=== PATIENT | male | born 1965 | race Caucasian/White ===

== ENCOUNTER → 2018-10-24 | Outpatient (CLI) | payer OTHER | LOC: CAT 10:53 | DX: Z13.6 Encounter for screening for cardiovascular disorders (principal); E78.00 Pure hypercholesterolemia, unspecified ==

== ENCOUNTER → 2018-10-29 | Outpatient (CLI) | payer BC, OTHER ==
[~2018-10-29] VITALS: Ht 182.9 cm; Wt 83.9 kg
--- NOTE | ~2018-10-29 | PATH ---
[facility] [address] [place] [address] PATHOLOGY RPT PROCEDURE Name: GLADYS CUEVAS TAN Room #: REG [facility] MJohnny.#: [id number] Admission: 10/29/18 Date of : 69 Discharge: Report #: [id number] Path Case #: [id number] [facility] Accession Number: [id number] . 01 Material submitted: . PART A: BX OF TRANSVERSE COLON POLYP X3 PART B: BX OF POLYP AT RECTUM X6 . 01 Clinical history: . Pre-OP DX: Screening Post-OP DX: Colon and rectal polyps . 02 Diagnosis: A. Polyps x 3, transverse colon polyp, endoscopic biopsy: - Three fragments showing lymphoid aggregates along with hyperplastic changes. - Negative for dysplasia. . B. Polyps x 6, at rectum, endoscopic biopsy: - Hyperplastic polyps as well as lymphoid aggregates. - Negative for dysplasia. (IUV:riaz; 10/30/2018) QMS/10/30/2018 . 02 Electronically signed: . Rachel Cruz MD, Pathologist NPI- [id number] . 01 Gross description: . A. Received in formalin labeled "Gladys Cuevas, BX of transverse colon polyp x3," are 5 segments of doshi soft tissue measuring 1.2 x 0.8 x 0.2 cm in aggregate dimensions and ranging from 0.3 to 0.5 cm in maximum dimension. The specimen is submitted entirely in cassette A1. . B. Received in formalin labeled "Gladys Cuevas, BX of polyp rectum x6," are 6 segments of doshi soft tissue measuring 1.0 x 0.8 x 0.2 cm in aggregate dimensions and ranging from 0.3 to 0.5 cm in maximum dimension. The specimen is submitted entirely in cassette B1. (TSD; 10/29/2018) TOB/TOB . 02 Pathologist provided ICD-10: K62.1, Z12.11 . 02 CPT . 608594, 678585 Specimen Comment: A courtesy [place] [address] PATHOLOGY RPT PROCEDURE Name: GLADYS CUEVAS TAN Room #: REG CL M..#: [id number] Admission: 10/29/18 Date of : 69 Discharge: Report #: [id number] Path Case #: [id number] Specimen Comment: [phone], . Specimen Comment: Report sent to / DR SRINIVASAN Performed at: [address] [facility], [place], [place] [id number] MD Jerrod Jacobson MD Phone: [phone] Performed at: [address] [facility] [id number] MD Rachel Cruz MD Phone: [phone]
== END | disposition home or self-care (01) ==
LOC: GI 06:28
DX: Z12.11 Encounter for screening for malignant neoplasm of colon (principal); K62.1 Rectal polyp; K63.89 Other specified diseases of intestine
CPT/HCPCS: 62110; 62900